=== PATIENT | female | born 1955 ===

== ENCOUNTER 2025-06-22 11:12 | Inpatient (IN) | payer OTHER ==
[~2025-06-22] VITALS: Ht 154.9 cm; Wt 58.5 kg
[2025-06-22] MEDS ORDERED: ZOCOR20 MG PO (11:14)
[2025-06-22] MEDS ORDERED: REFRESH CLASSI1 EACH OP (11:14)
[2025-06-30] MEDS ORDERED: levoFLOXacin IN DEXTROSE 5 % 5 MG/ML PIGGYBAG IV ONE (07:08)
[2025-06-30] MEDS ORDERED: METRONIDAZOLE/SODIUM CHLORIDE 500 MG/100 ML PIGGYBACK IV ONE (07:08)
[2025-06-30] MEDS ORDERED: LIDOCAINE HCL 1%/EPINEPHRINE 20ML VIAL IJ ONE (07:57)
[2025-06-30] MEDS ORDERED: BUPIVACAINE HCL/MPF 0.5% 30ML VIAL ONE (07:57)
[2025-06-30] MEDS ORDERED: DEXTROSE 50 % IN WATER 0.5 G/ML DISP.SYRIN IV PRN (10:00)
[2025-06-30] MEDS ORDERED: 0.9 % SODIUM CHLORIDE 1,000 ML IV SCH (10:00)
[2025-06-30] MEDS ORDERED: MORPHINE SULFATE 4 MG/ML CARTRIDGE IV PRN (10:00)
[2025-06-30] MEDS ORDERED: OxyCODONE HCL 5 MG TABLET (ROXICODONE) PO PRN (10:00)
[2025-06-30] MEDS ORDERED: ONDANSETRON HCL 2 MG/ML VIAL IV PRN (10:00)
[2025-06-30 12:02] LABS: BASO % 0.3 % (0.1-1.2); EOS # 0.01 (0.04-0.54); EOS % 0.1 % (0.7-7.0); LYMPH # 0.92 (1.18-3.74); LYMPH % 6.3 % (19.3-53.1); MEAN PLATELET VOLUME 12.40 fl (9.4-12.4); MONO # 0.76 (0.24-0.82); MONO % 5.2 % (4.7-12.5); NEUT # 12.81 (1.56-6.13); NEUT % 87.7 % (34.0-71.1); RED CELL DISTRIBUTION WIDTH 13.3 % (11.6-14.4)
[2025-06-30 12:56] LABS: BUN CREA RATIO 11.0 (7.0-25.0); CREATININE SERUM 0.62 mg/dL (0.55-1.02); GFR 96.01; GLUCOSE FASTING 174.0 mg/dL (65-100); OSMOLALITY SERUM 285.0 MOSM/KG (275-295)
[2025-06-30] MEDS ORDERED: HYOSCYAMINE SULFATE 0.125 MG TAB.SUBL SL SCH (13:00)
[2025-06-30] MEDS ORDERED: ACETAMINOPHEN 500 MG GEL..CAP PO SCH (14:00)
[2025-06-30 16:30] VITALS: BP 136/65; O2SAT 98
[2025-06-30] MEDS ORDERED: GABAPENTIN 300 MG CAPSULE PO SCH (17:00)
[2025-06-30] MEDS ORDERED: METRONIDAZOLE/SODIUM CHLORIDE 500 MG/100 ML PIGGYBACK IV SCH (17:00)
[2025-06-30] MEDS ORDERED: FAMOTIDINE/PF 20 MG/2 ML VIAL IV PUSH SCH (21:00)
[2025-06-30] MEDS ORDERED: CELECOXIB 200 MG CAPSULE PO SCH (21:00)
[2025-07-01] VITALS: BP 133/71; O2SAT 96
[2025-07-01 06:44] LABS: BASO % 0.2 % (0.1-1.2); EOS # 0.00 (0.04-0.54); EOS % 0.0 % (0.7-7.0); LYMPH # 0.75 (1.18-3.74); LYMPH % 7.2 % (19.3-53.1); MEAN PLATELET VOLUME 12.90 fl (9.4-12.4); MONO # 0.78 (0.24-0.82); MONO % 7.4 % (4.7-12.5); NEUT # 8.91 (1.56-6.13); NEUT % 85.0 % (34.0-71.1); RED CELL DISTRIBUTION WIDTH 13.5 % (11.6-14.4)
[2025-07-01 07:18] LABS: BUN CREA RATIO 11.0 (7.0-25.0); CREATININE SERUM 0.64 mg/dL (0.55-1.02); GFR 92.56; GLUCOSE FASTING 115.0 mg/dL (65-100); OSMOLALITY SERUM 280.0 MOSM/KG (275-295)
[2025-07-01 08:00] VITALS: BP 138/69; O2SAT 98
[2025-07-01] MEDS ORDERED: POTASSIUM PHOS,M-BASIC-D-BASIC 3 MM/ML VIAL IV ONE (14:00)
[2025-07-01 16:00] VITALS: BP 137/73; O2SAT 97
[2025-07-01] MEDS ORDERED: ENOXAPARIN SODIUM 40 MG/0.4 ML SYRINGE SUBCUTANEO SCH (17:00)
[2025-07-01] MEDS ORDERED: SIMVASTATIN 20 MG TABLET PO SCH (17:00)
[2025-07-02 08:00] VITALS: BP 125/71; O2SAT 100
[2025-07-02] MEDS ORDERED: ENOXAPARIN SODIUM 40 MG/0.4 ML SYRINGE SUBCUTANEO SCH (09:00)
[2025-07-02] MEDS ORDERED: POLYETHYLENE GLYCOL 3350 17 GM BLIST.PACK PO SCH (12:00)
[2025-07-02 16:00] VITALS: BP 131/70; O2SAT 98
[2025-07-03] VITALS: BP 117/64; O2SAT 99
[2025-07-03] MEDS ORDERED: INTESTINEX680 M1 PO (07:44)
[2025-07-03] MEDS ORDERED: NEURONTIN300 MG PO (07:44)
[2025-07-03] MEDS ORDERED: LEVSIN/SL0.125 MG SL (07:45)
[2025-07-03 07:52] LABS: BASO % 0.6 % (0.1-1.2); EOS # 0.03 (0.04-0.54); EOS % 0.4 % (0.7-7.0); LYMPH # 1.44 (1.18-3.74); LYMPH % 17.3 % (19.3-53.1); MEAN PLATELET VOLUME 14.10 fl (9.4-12.4); MONO # 0.52 (0.24-0.82); MONO % 6.3 % (4.7-12.5); NEUT # 6.25 (1.56-6.13); NEUT % 75.2 % (34.0-71.1); RED CELL DISTRIBUTION WIDTH 13.9 % (11.6-14.4)
[2025-07-03 08:00] VITALS: BP 139/74; O2SAT 99
[2025-07-03 08:21] LABS: BUN CREA RATIO 17.0 (7.0-25.0); CREATININE SERUM 0.58 mg/dL (0.55-1.02); GFR 103.69; GLUCOSE FASTING 90.0 mg/dL (65-100); OSMOLALITY SERUM 287.0 MOSM/KG (275-295)
[2025-07-03] MEDS ORDERED: NAPH,MB-DB/K PH,MBDB 1 PKT PACKET PO NR (10:50)
== END 2025-07-03 11:30 | disposition home or self-care (01) | DRG 331 ==
LOC: O/R 06-30 06:00 → SURH 06-30 07:00 → SURG 06-30 15:12
PROVIDERS: Internal Medicine Geriatric Medicine; ADMIT Surgery; ATTEND Surgery
PROC: 0DTP4ZZ Resection of Rectum, Percutaneous Endoscopic Approach (ICD-10-PCS; 2025-06-30)
PROC: 0DJD8ZZ Inspection of Lower Intestinal Tract, Via Natural or Artificial Opening Endoscopic (ICD-10-PCS; 2025-06-30)
PROC: 0DTNFZZ Resection of Sigmoid Colon, Via Natural or Artificial Opening With Percutaneous Endoscopic Assistance (ICD-10-PCS; principal; 2025-06-30 07:00)
DX: K57.32 Diverticulitis of large intestine without perforation or abscess without bleeding (principal); R19.4 Change in bowel habit